=== PATIENT | male | born 1990 | race Two or more races ===

== ENCOUNTER 2025-05-12 20:46 | Emergency (ER) | payer MEDICAID, OTHER ==
[~2025-05-12] VITALS: Ht 188 cm; Wt 83.9 kg
[2025-05-12 21:05] VITALS: TEMP 97.8
[2025-05-12 21:30] LABS: PLATELET COUNT (AUTO) 259 K/uL (150-450); RED BLOOD CELL COUNT(AUTO) 5.10 MIL/uL (4.5-6.0); RED CELL DISTRIBUTION WIDTH 14.0 % (11.5-15.0); WHITE BLOOD COUNT (AUTO) 6.0 K/uL (4.3-11.0)
[2025-05-12 21:38] LABS: CALCIUM, SERUM 8.8 mg/dL (8.5-10.1); CREATININE 1.2 mg/dL (0.6-1.3); SODIUM SERUM 140 mmol/L (136-145); UREA NITROGEN, BLOOD 18 mg/dL (7-18)
[2025-05-12 22:05] VITALS: BP 130/86; O2SAT 99
== END 2025-05-12 22:31 | disposition home or self-care (01) ==
LOC: ER 21:04
DX: R07.9 Chest pain, unspecified (principal); M25.512 Pain in left shoulder; M79.602 Pain in left arm
CPT/HCPCS: 36415; 71045-TC; 80048-TC; 84484-TC; 85025-TC